=== PATIENT | male | born 1965 | race Caucasian/White ===

== ENCOUNTER → 2019-12-20 14:33 | Outpatient (CLI) | payer OTHER, SELFPAY | PROVIDERS: Family Provider Family Medicine; PCP Family Medicine; Referring Provider Family Medicine; Visit Provider Family Medicine | DX: S61.201A Unspecified open wound of left index finger without damage to nail, initial encounter (principal) | CPT/HCPCS: 97597; 99203; 99213 ==

== ENCOUNTER → 2020-09-20 09:44 | Outpatient (CLI) | payer OTHER, SELFPAY ==
[2020-09-20 11:22] LABS: COVID19 -Nasal RAPID Negative (Negative)
== END ==
PROVIDERS: Family Provider Family Medicine; PCP Family Medicine; Visit Provider Nurse Practitioner Family
DX: Z01.812 Encounter for preprocedural laboratory examination (principal); Z20.822 Contact with and (suspected) exposure to COVID-19
CPT/HCPCS: 87635

== ENCOUNTER 2020-09-21 10:52 | Day surgery (SDC) | payer OTHER, SELFPAY ==
[2020-09-18 15:14] VITALS: BMI 59.1
[2020-09-21 11:36] VITALS: BP 143/86; PULSE 75; RESP 18; TEMP 37.1; O2SAT 97; BMI 62.0
[2020-09-21] MEDS: LACTATED RINGERS 1,000 ML 42 ML IV (11:53)
--- NOTE | 2020-09-21 12:00 | PM.PREOP ---
Pre-operative Note COVID-19 COVID-19 status: Negative Result date/Date tested (Pos, Neg/Pending): 09/19/20 Interval Note History & Physical reviewed/Exam performed by Physician: Yes Changes to H&P: No
--- NOTE | 2020-09-21 13:31 | SUR.OPER ---
Supine on padded OR bed, head on pillow on foam wedge under upper body, left arm secured on padded arm boards at <90 degrees abduction, right arm draped free on black arm tablelegs uncrossed, safety belt at thigh, tape over blanket over lower legs.
[2020-09-21] MEDS: BUPIVACAINE 0.5% W/ EPI (PF) 30 ML VIAL INJ (13:41)
--- NOTE | 2020-09-21 13:50 | PM.OP.1 ---
Operative Date/Time/Diagnoses Date of procedure: 09/21/20 Time of procedure: 13:15 Pre-op diagnosis: Right middle finger trigger finger Post-op diagnosis: same Procedure & Clinicians Procedure: Right middle finger trigger finger release Same procedure as scheduled: Yes Indications: Right middle finger trigger finger Surgeon: Jovany Paul Click Yes if Unassisted: Yes Anesthesia Type: MAC +/- Operative Notes Findings: Locking of the right middle finger at the A1 lakshmi. No sign of any significant tenosynovitis no sign of any ganglion cyst formations. No masses noted. Closure Type: primary Specimen(s): none sent Estimated Blood Loss (mL): 0 Blood products transfused: none Tourniquet time (min): 9 Procedure in detail: On date of service, the patient was met in the holding area. Patients operative site was signed and witnessed by the OR staff. The surgery was once again discussed with the patient, and any remaining questions they had were answered fully. Patient was taken back to the operating theater and placed on the operating table in a supine position. Great care was taken to ensure that all bony prominences were carefully padded. A well-padded tourniquet was placed up along the upper extremity. A timeout was performed to verify patient's name, procedure, and operative site. The arm was then prepped and draped in the normal sterile fashion. A 15 blade was used to incise through skin At the distal palmar crease. Fifteen blade was used to incise through skin only. Pickups and tenotomies were used to bluntly dissect down until we had good visualization of the A1 lakshmi. The neurovascular bundles were identified and protected. Once they were protected and we had good visualization of the A1 lakshmi and the A1 lakshmi was sharply excised. This allowed the patient to intraoperatively flex and extend the finger without any signs of any locking or catching. The wound was then irrigated and closed with nylon. The hand was then cleaned, dried, and dressed. Patient was taken to the PACU in stable condition. Complications: none Post-operative Condition: stable Disposition: PACU Plan for aftercare: No restrictions of range of motion. Will will limit lifting to 2-3 lb for the next 2 weeks.
[2020-09-21 13:53] VITALS: BP 127/82; PULSE 81; RESP 15; TEMP 36.9; O2SAT 97
[2020-09-21 14:05] VITALS: BP 133/78; PULSE 80; RESP 17; TEMP 37; O2SAT 97
== END 2020-09-21 14:08 | disposition home or self-care (01) ==
PROVIDERS: Family Provider Family Medicine; PCP Family Medicine; Referring Provider Orthopaedic Surgery; Visit Provider Orthopaedic Surgery
PROC: (CPT 26055; principal; 2020-09-21 12:15)
DX: M65.331 Trigger finger, right middle finger (principal); G47.33 Obstructive sleep apnea (adult) (pediatric); E66.01 Morbid (severe) obesity due to excess calories; Z68.44 Body mass index [BMI] 60.0-69.9, adult
CPT/HCPCS: 26055; J2250; J2704; J3010